=== PATIENT | female | born 1945 | race Caucasian/White ===

== ENCOUNTER 2024-07-19 08:32 | Outpatient (REF) | payer MEDICARE, SELFPAY ==
--- NOTE | ~2024-07-19 | XR_ITS ---
EXAMINATION: XR KNEE, RIGHT XR KNEE, LEFT CLINICAL INFORMATION: Right and left knee pain. COMPARISON: None available. TECHNIQUE: AP, lateral, and sunrise views of the right and left knee. FINDINGS: Right Knee: Mild medial compartment joint space narrowing. Tiny medial and patellofemoral compartment and marginal osteophytes. No osseous erosion. No fracture or dislocation. Superior patellar enthesophytes. No joint effusion. Left Knee: Moderate medial compartment joint space narrowing. Medial and patellofemoral compartment and marginal osteophytes. No osseous erosion. No fracture or dislocation. Superior patellar enthesophytes. No joint effusion. XR/XR knee RT 3V IMPRESSION: RIGHT KNEE: Mild medial and patellofemoral compartment osteoarthritis. LEFT KNEE: Moderate medial as well as mild patellofemoral compartment osteoarthritis. Electronically signed by: Nazario Hayes MD 08/08/2024 08:56 PM EDT
--- NOTE | ~2024-07-19 | XR_ITS ---
EXAMINATION: XR KNEE, RIGHT XR KNEE, LEFT CLINICAL INFORMATION: Right and left knee pain. COMPARISON: None available. TECHNIQUE: AP, lateral, and sunrise views of the right and left knee. FINDINGS: Right Knee: Mild medial compartment joint space narrowing. Tiny medial and patellofemoral compartment and marginal osteophytes. No osseous erosion. No fracture or dislocation. Superior patellar enthesophytes. No joint effusion. Left Knee: Moderate medial compartment joint space narrowing. Medial and patellofemoral compartment and marginal osteophytes. No osseous erosion. No fracture or dislocation. Superior patellar enthesophytes. No joint effusion. XR/XR knee LT 3V IMPRESSION: RIGHT KNEE: Mild medial and patellofemoral compartment osteoarthritis. LEFT KNEE: Moderate medial as well as mild patellofemoral compartment osteoarthritis. Electronically signed by: Nazario Hayes MD 08/08/2024 08:56 PM EDT
== END 2024-07-19 08:33 | disposition home or self-care (01) ==
LOC: HO.HOSX 08:32
PROVIDERS: PCP Internal Medicine; Visit Provider Orthopaedic Surgery
DX: M25.562 Pain in left knee (principal); M25.561 Pain in right knee; M17.11 Unilateral primary osteoarthritis, right knee; M17.12 Unilateral primary osteoarthritis, left knee
CPT/HCPCS: 20610; 73562; 99202; J1010

== ENCOUNTER 2024-07-19 09:15 | Outpatient (AMB) | payer MEDICARE, SELFPAY ==
--- NOTE | 2024-07-19 09:20 | MHC.OFFVIS ---
Vital Signs 07/19/24 09:22 Height 5 ft 1 in Weight 160 lb BMI 30.2 Intake Visit Reasons: Bilateral knee pain Intake Note: Genny is a 79 year old female who presents with complaints of bilateral knee pains. She describes her pains as sharp in nature. She has had cortisone injections in the past which gave her fairly good relief. She has tried Tylenol and anti-inflammatory medicines which gave her minimal relief. She would like to hold off on surgery for as long as possible. She has physical therapy exercises which aggravated her pain. Allergies cefuroxime [From CEFTIN] Allergy (Severe, Unverified 07/19/24 09:23) THROAT SWELLS codeine [CODEINE] Allergy (Severe, Unverified 07/19/24 09:23) ANGIOEDEMA, swelling Medication List - Last Reconciled 07/19/24 by Elías Floyd MD albuterol sulfate 90 mcg/actuation 2 puffs inhalation QID PRN aspirin (Adult Low Dose Aspirin) 162 mg PO DAILY cetirizine 10 mg PO DAILY levothyroxine 75 mcg PO DAILY oxybutynin chloride 5 mg PO TID [facility] Social History (Updated 07/19/24 @ 09:29 by SHADI Young) Alcohol intake: never Patient Tobacco Use Status: Never used Tobacco Current occupational status: retired Physical Exam Vital Signs: BMI result Body Mass Index 30.2 Const Other: Well-nourished well-developed very friendly female awake alert and oriented x3 in no acute distress Extrem Other: Bilateral lower extremity examination shows good capillary refill, no skin lesions noted, normal sensation light touch Bilateral knee examination shows minimal effusions, palpable crepitus with range of motion, pain with range of motion, range of motion from -3 degrees to 115 degrees, no instability Office Procedures Joint Injection/Aspiration Joint Injection/Aspiration Primary Site: left knee Prep: site was prepped using aseptic technique Injected: 40 mg of, DepoMedrol and 1% plain lidocaine Procedure: The patient tolerated the procedure well Coding 92535 - Large joint Procedure code (CPT) selection complete Joint Injection/Aspiration Joint Injection/Aspiration Primary Site: right knee Prep: site was prepped using aseptic technique Injected: 40 mg of, DepoMedrol and 1% plain lidocaine Procedure: The patient tolerated the procedure well Coding 53937 - Large joint Procedure code (CPT) selection complete Results Reviewed Results Reviewed: X-rays of the patient's bilateral knee show moderate joint space narrowing most significant in the medial compartments, subchondral sclerosis, no acute bony abnormalities Assessment & Plan Assessment & Plan (1) Arthritis of left knee: Code(s): M17.12 - Unilateral primary osteoarthritis, left knee Category: Medical (2) Arthritis of right knee: Code(s): M17.11 - Unilateral primary osteoarthritis, right knee Category: Medical (3) Pain in both knees: Code(s): M25.561 - Pain in right knee; M25.562 - Pain in left knee Plan Mrs. Bobo presents with bilateral knee pains due to degenerative joint disease. I had a lengthy discussion with the patient regarding the treatment options. The risks and benefits of bilateral knee cortisone injections were discussed at length with the patient. The patient wished to proceed. She tolerated the injections well. She will continue with a home exercise program. She will follow up with me on an as-needed basis should her symptoms not plateau at an unacceptable level over the next few months. Feel free to call me at any time should questions regarding her orthopedic management arise. I spent 22 minutes in reviewing the patient's records and imaging studies, seeing the patient and documenting in the medical record. Orders: Orders XR knee LT 3V Today M25.562 - Pain in left knee XR knee RT 3V Today M25.561 - Pain in right knee AMB Joint Injection/Aspiration Today M17.12 - Unilateral primary osteoarthritis, left knee AMB Joint Injection/Aspiration Today M17.11 - Unilateral primary osteoarthritis, right knee Coding Level of Care Code New Pt Level 3 (07986) Diagnoses Arthritis of left knee M17.12 Arthritis of right knee M17.11 Pain in both knees M25.561; M25.562 CPT Codes Coding - 37676 Large joint: 11313 - Large joint ([id number]) Coding - 89624 Large joint: 91208 - Large joint ([id number])
[2024-07-19 09:22] VITALS: BMI 30.2
== END 2024-07-19 09:49 | disposition home or self-care (01) ==
PROVIDERS: PCP Nurse Practitioner Family; Visit Provider Orthopaedic Surgery
DX: M17.0 Bilateral primary osteoarthritis of knee (principal)
CPT/HCPCS: 20610; 99203

== ENCOUNTER 2024-08-26 10:09 | Day surgery (SDC) | payer MEDICARE, SELFPAY ==
--- NOTE | 2024-08-25 10:01 | HO.ANESPROP2 ---
Documented by User: Jackelyn Morrow NP 08/25/24 11:49 HPI - Anesthesia Eval Consult details Narrative: 79yo F for Upper Endoscopy and Colonoscopy Follows [facility] cardiology. Last office visit 08/23/24: ?Patient was referred to cardiology for dyspnea.? Although her EKG?showed?Q waves?her echocardiogram?showed preserved EF with no wall motion abnormalities.? She was found to have?asymmetric basal septal hypertrophy?with no?evidence of?LVOT.? She has not had any clinical heart failure. ?BNP was low.? She was able to exercise at a high functional capacity without any?EKG changes.? D-dimer was negative.? She is not having any active chest pain.? I cannot appreciate a significant murmur on exam?which is consistent with echo?findings.? PMF Active Problems Active Problems: All Active Problems Arthritis of right knee (Acute) Arthritis of left knee (Acute) Right knee pain (Acute) Left knee pain (Acute) Past Medical History Medical History (Updated 08/25/24 @ 08:49 by Jud Alva RN) Thyroid disease Lumbosacral plexopathy Vitamin D deficiency Osteopenia Osteoarthritis TIA (transient ischemic attack) GERD (gastroesophageal reflux disease) Surgical History Surgical History (Updated 08/25/24 @ 08:48 by Jud Alva RN) Hx of breast biopsy Hx of cholecystectomy History of cervical spinal surgery H/O colonoscopy History of esophagogastroduodenoscopy (EGD) Social History Social History (Updated 07/19/24 @ 09:29 by SHADI Young) Are you a primary health care marketing manager to a significant other at home: No Do you presently have visiting nurse or other home services: No Alcohol intake: never Patient Tobacco Use Status: Never used Tobacco Use of substances other than those prescribed or required for medical reasons: No Are you DNR?: No Advance Directives: No Advance Directives Information Provided: Yes Current occupational status: retired Meds Allergies Allergy/AdvReac Type Severity Reaction Status Date / Time cefuroxime [From CEFTIN] Allergy Severe THROAT Verified 08/26/24 10:42 SWELLS codeine [CODEINE] Allergy Severe ANGIOEDEMA, Verified 08/26/24 10:42 swelling Home Medications ?Medication ?Instructions ?Recorded ?Confirmed ?Last Taken ?Type albuterol sulfate 90 mcg/actuation 2 puff inhalation QID PRN wheezing 07/19/24 08/26/24 Unknown History aerosol inhaler aspirin 81 mg tablet,delayed 162 mg PO DAILY 07/19/24 08/26/24 Unknown History release (Adult Low Dose Aspirin) cetirizine 10 mg tablet 10 mg PO DAILY 07/19/24 08/26/24 Unknown History levothyroxine 75 mcg tablet 75 mcg PO DAILY 07/19/24 08/26/24 Unknown History oxybutynin chloride 5 mg tablet 5 mg PO TID 07/19/24 08/26/24 Unknown History ascorbic acid (vitamin C) 500 mg 500 mg PO DAILY 08/25/24 08/26/24 Unknown History tablet (Vitamin C) lysine 1,000 mg tablet 1,000 mg PO DAILY 08/25/24 08/26/24 Unknown History multivit,calcium,minerals-folic tab PO 08/25/24 Unknown History acid-herbal no.176 200 mcg tablet [id number] 8 mg-folic 400 1 tab PO DAILY 08/25/24 08/26/24 Unknown History mcg-K 50 mcg-lutein 300 mcg tablet (Multivitamin Women 50 Plus) turmeric 08/25/24 Unknown History pantoprazole 40 mg tablet,delayed 40 mg PO DAILY 08/26/24 08/26/24 Unknown History release Exam Pertinent Lab Results Pertinent Lab Results: [facility] WBC: 6.2 x10E3/uL (08/22/24) RBC: 4.27 (08/22/24) Hgb: 13 Gm/dL (08/22/24) Hct: 40.4 % (08/22/24) MCV: 95 fL (08/22/24) MCH: 30.4 pg (08/22/24) MCHC: 32.2 Gm/dL (08/22/24) Platelet Count: 302 x10E3/uL (08/22/24) Sodium: 137 mmol/L (08/22/24) Potassium: 4.7 mmol/L (08/22/24) Chloride: 100 mmol/L (08/22/24) Bicarbonate Level: 24 mmol/L (08/22/24) Glucose Level: 91 mg/dL (08/22/24) Hemoglobin A1C (Monitoring):?5.7 %?High (08/22/24) BUN: 17 mg/dL (10/05/23) BUN: 16 mg/dL (08/22/24) Creatinine-Blood:?1.03 mg/dL?High (08/22/24) Calcium: 9.3 mg/dL (08/22/24) Protein, Total: 6.9 Gm/dL (08/22/24) Albumin: 4.2 Gm/dL (08/22/24) Alkaline Phosphatase: 44 IU/L (08/22/24) AST (SGOT): 21 IU/L (08/22/24) ALT (SGPT): 14 IU/L (08/22/24) Bilirubin, Total: 0.4 mg/dL (08/22/24) Nt-Probnp: 206 pg/mL (05/09/24) Cholesterol:?245 mg/dL?High (08/22/24) Triglycerides:?152 mg/dL?High (08/22/24) HDL Cholesterol: 60 mg/dL (08/22/24) LDL Cholesterol: 113 mg/dL (10/05/23) Non HDL Cholesterol:?185 mg/dL?High (08/22/24) LDL Chol Calc (NIH):?158 mg/dL?High (08/22/24) TSH: 0.597 uIU/mL (08/22/24) Free T4: 1.66 ng/dL (08/22/24) Narrative Narrative: 14:50:12 Ventricular Rate: 71 BPM Atrial Rate: 71 BPM P-R Interval: 124 ms QRS Duration: 116 ms Q-T Interval: 440 ms QTC Calculation(Bazett): 478 ms P [place]: 44 degrees R [place]: -3 degrees T [place]: 5 degrees Normal sinus rhythm infero-posterior infarct (cited on or before 08-OCT-2023) Right bundle branch block When compared with ECG of 11-FEB-2024 14:49, No significant change was found Confirmed by SARI WEI MD ([id number]) on 02/12/2024 8:09:09 PM [place]: SARI WEI MD ? Signed By: Curt Wei MD Echocardiogram - Complete ? 09:03:16 Summary Normal left ventricular size and function with ejection fraction of 60-65%. No focal wall motion abnormalities. Severe asymmetric basal septal hypertrophy with septal thickness 2.3 cm. The remainder of the left ventricle has normal wall thickness. There is no evidence of a left ventricular outflow tract obstruction. Normal right ventricular size and function. No significant valvular disease. Comparison Comparison is made to the study of 12/04/2022, . There is no significant change. Assessment and Plan Assessment Anesthesia Assessment: Chart Reviewed Documented by User: Pasquale Rivera MD 08/26/24 10:50 PMF Past Medical History Medical History (Updated 08/25/24 @ 08:49 by Jud Alva RN) Thyroid disease Lumbosacral plexopathy Vitamin D deficiency Osteopenia Osteoarthritis TIA (transient ischemic attack) GERD (gastroesophageal reflux disease) Family History Family history of problems with anesthesia: No Surgical History Surgical History (Updated 08/25/24 @ 08:48 by Jud Alva RN) Hx of breast biopsy Hx of cholecystectomy History of cervical spinal surgery H/O colonoscopy History of esophagogastroduodenoscopy (EGD) History of Problems with Anesthesia: No Social History Social History (Updated 07/19/24 @ 09:29 by SHADI Young) Are you a primary health care marketing manager to a significant other at home: No Do you presently have visiting nurse or other home services: No Alcohol intake: never Patient Tobacco Use Status: Never used Tobacco Use of substances other than those prescribed or required for medical reasons: No Are you DNR?: No Advance Directives: No Advance Directives Information Provided: Yes Current occupational status: retired Meds Allergies Allergy/AdvReac Type Severity Reaction Status Date / Time cefuroxime [From CEFTIN] Allergy Severe THROAT Verified 08/26/24 10:42 SWELLS codeine [CODEINE] Allergy Severe ANGIOEDEMA, Verified 08/26/24 10:42 swelling Home Medications ?Medication ?Instructions ?Recorded ?Confirmed ?Last Taken ?Type albuterol sulfate 90 mcg/actuation 2 puff inhalation QID PRN wheezing 07/19/24 08/26/24 Unknown History aerosol inhaler aspirin 81 mg tablet,delayed 162 mg PO DAILY 07/19/24 08/26/24 Unknown History release (Adult Low Dose Aspirin) cetirizine 10 mg tablet 10 mg PO DAILY 07/19/24 08/26/24 Unknown History levothyroxine 75 mcg tablet 75 mcg PO DAILY 07/19/24 08/26/24 Unknown History oxybutynin chloride 5 mg tablet 5 mg PO TID 07/19/24 08/26/24 Unknown History ascorbic acid (vitamin C) 500 mg 500 mg PO DAILY 08/25/24 08/26/24 Unknown History tablet (Vitamin C) lysine 1,000 mg tablet 1,000 mg PO DAILY 08/25/24 08/26/24 Unknown History multivit,calcium,minerals-folic tab PO 08/25/24 Unknown History acid-herbal no.176 200 mcg tablet wivrlzsf-fvlb-fwdg 8 mg-folic 400 1 tab PO DAILY 08/25/24 08/26/24 Unknown History mcg-K 50 mcg-lutein 300 mcg tablet (Multivitamin Women 50 Plus) turmeric 08/25/24 Unknown History pantoprazole 40 mg tablet,delayed 40 mg PO DAILY 08/26/24 08/26/24 Unknown History release Exam Pertinent Lab Results Pertinent Lab Results: [facility] WBC: 6.2 x10E3/uL (08/22/24) RBC: 4.27 (08/22/24) Hgb: 13 Gm/dL (08/22/24) Hct: 40.4 % (08/22/24) MCV: 95 fL (08/22/24) MCH: 30.4 pg (08/22/24) MCHC: 32.2 Gm/dL (08/22/24) Platelet Count: 302 x10E3/uL (08/22/24) Sodium: 137 mmol/L (08/22/24) Potassium: 4.7 mmol/L (08/22/24) Chloride: 100 mmol/L (08/22/24) Bicarbonate Level: 24 mmol/L (08/22/24) Glucose Level: 91 mg/dL (08/22/24) Hemoglobin A1C (Monitoring):?5.7 %?High (08/22/24) BUN: 17 mg/dL (10/05/23) BUN: 16 mg/dL (08/22/24) Creatinine-Blood:?1.03 mg/dL?High (08/22/24) Calcium: 9.3 mg/dL (08/22/24) Protein, Total: 6.9 Gm/dL (08/22/24) Albumin: 4.2 Gm/dL (08/22/24) Alkaline Phosphatase: 44 IU/L (08/22/24) AST (SGOT): 21 IU/L (08/22/24) ALT (SGPT): 14 IU/L (08/22/24) Bilirubin, Total: 0.4 mg/dL (08/22/24) Nt-Probnp: 206 pg/mL (05/09/24) Cholesterol:?245 mg/dL?High (08/22/24) Triglycerides:?152 mg/dL?High (08/22/24) HDL Cholesterol: 60 mg/dL (08/22/24) LDL Cholesterol: 113 mg/dL (10/05/23) Non HDL Cholesterol:?185 mg/dL?High (08/22/24) LDL Chol Calc ([facility]):?158 mg/dL?High (08/22/24) TSH: 0.597 uIU/mL (08/22/24) Free T4: 1.66 ng/dL (08/22/24) Airway Mallampati Class: II TM Dist: >3cm Neck ROM: Full Assessment and Plan Assessment Anesthesia Assessment: Anesthesia Plan Discussed Final Anesthetic Review Family History of Problems with Anesthesia: No History of Problems with Anesthesia: No NPO: Yes ASA Class: III Final Preanesthetic Review: No Changes in Pt Med Stat, Meds/Allgs Chart Reviewed, Consent Obtained/Reviewed and Anes Risks/Benef Reviewed Patient Risk: Intermediate Procedure Risk: Low Anesthetic Plan Anesthetic Plan: TIVA Disposition: Standard PACU
[2024-08-26 10:23] VITALS: BMI 31.7
[2024-08-26 10:26] VITALS: BP 126/58; PULSE 74; RESP 16; TEMP 36.4; O2SAT 99
[2024-08-26] MEDS: Lactated Ringers 1,000 ML 100 ML IVCONT (10:48)
--- NOTE | 2024-08-26 10:49 | MHC.SHP ---
Pre-Procedural Eval Section A - 24 Hr Update-Section A only Date of Service: 08/26/24 Section B - Complete if H&P > 30 days Chief Complaint: Gastro-esophageal reflux disease with esophagitis, Details of Present Illness: see H&P no changes Relevant Family History (Specify if Yes): No Relevant Social History: None Present Medications: see Short Stay Collaborative assessment Medical History: No relevant PMH History of Previous Operations: No relevant previous surgery Allergies: Allergies Allergy/AdvReac Type Severity Reaction Status Date / Time cefuroxime [From CEFTIN] Allergy Severe THROAT Verified 08/26/24 10:42 SWELLS codeine [CODEINE] Allergy Severe ANGIOEDEMA, Verified 08/26/24 10:42 swelling Review of Systems Sugical H&P ROS: Negative: Constitution, Cardiovascular, Respiratory, Neurological, Psychiatric, Hem-Onc, Allergic/Immunologic, Gastrointestinal, Genitourinary, Musculoskeletal, Integumentary, Endocrine and Eyes/Ears/Nose/Throat Exam Surgical H&P Exam: Normal: HEENT, Normal: Heart, Normal: Lungs, Normal: Extremities, Normal: Abdomen, Normal: Skin and Normal: Neurological Plan Diagnosis/Plan: Unchanged I have reviewed the history and physical and performed a pertinent physical examination on my patient. No changes have occurred unless specified. Time Spent With Patient Time: Total time managing care of this patient today ____ minutes.
[2024-08-26 11:36] VITALS: BP 119/61; PULSE 72; RESP 15; TEMP 36.4; O2SAT 99
[2024-08-26 11:51] VITALS: BP 121/79; PULSE 68; RESP 15; O2SAT 97
--- NOTE | 2024-08-26 11:59 | OP_ITS ---
DATE OF SERVICE: 08/26/2024 SURGEON: Mars Stokes MD INDICATIONS: 1. Gastroesophageal reflux disease with esophagitis. 2. Diarrhea. 3. Colon cancer screening. PREOPERATIVE DIAGNOSIS: POSTOPERATIVE DIAGNOSIS: PROCEDURE PERFORMED: ESTIMATED BLOOD LOSS: COMPLICATIONS: ANESTHESIA: Monitored anesthesia care. ASSISTANTS: SPECIMENS: PROCEDURES PERFORMED: 1. Upper endoscopy with biopsy. 2. Colonoscopy to the terminal ileum with biopsy. DESCRIPTION OF PROCEDURE: A history and physical were performed. The risks and benefits of the procedure were explained to the patient. Informed consent was obtained. The patient was placed in the left lateral decubitus position. The Olympus video gastroscope was introduced into the esophagus, stomach, and duodenum. Examination was performed and the scope was removed. She was repositioned for colonoscopy. A digital rectal exam was performed and was found to be normal. The Olympus pediatric video colonoscope was introduced into the rectum and advanced to the cecum. The cecum was identified by transillumination, palpation, and identification of ileocecal valve. Examination was performed and the scope was removed. She tolerated both procedures well and was returned to recovery area in stable condition. FINDINGS: Upper endoscopy: 1. Esophagus. The esophagus was normal. There was no esophagitis. The EG junction was slightly irregular and this was biopsied. There was a small sliding hiatal hernia. 2. Stomach. Showed no evidence of masses, ulcers, or polyps. Antral biopsies were obtained to evaluate for H pylori. 3. Duodenum, the bulb and second portion were normal. Second portion biopsies were obtained. Colonoscopy: The terminal ileum was examined and appeared normal. 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 No therapy was performed. A small, less than 5 mm polyp was present in the cecum and we removed this with biopsy forceps. No other polyps were identified. There was mild sigmoid diverticulosis. The quality of the prep was good. Retroflexed examination showed small internal hemorrhoids. Random sigmoid biopsies were obtained because of the patient's history of diarrhea. IMPRESSION: 1. Hiatal hernia. 2. Gastroesophageal reflux disease. 3. Colon polyp. RECOMMENDATION: Follow up the biopsy results. MD KANDI Mayer/SWATHI / [id number]
[2024-08-26 12:05] VITALS: BP 144/66; PULSE 66; RESP 15; TEMP 36.4; O2SAT 97
--- NOTE | 2024-08-26 12:35 | PC.NURSE ---
dr. michele visited with patient in discharge and updated her regarding procedure, findings and f/u.
== END 2024-08-26 12:37 | disposition home or self-care (01) ==
PROVIDERS: PCP Internal Medicine; Visit Provider Internal Medicine Gastroenterology
PROC: (CPT 43239; principal; 2024-08-26 11:00)
DX: K22.89 Other specified disease of esophagus (principal); K29.70 Gastritis, unspecified, without bleeding; K44.9 Diaphragmatic hernia without obstruction or gangrene; K21.00 Gastro-esophageal reflux disease with esophagitis, without bleeding; Z12.11 Encounter for screening for malignant neoplasm of colon; D12.0 Benign neoplasm of cecum; K55.20 Angiodysplasia of colon without hemorrhage; K57.30 Diverticulosis of large intestine without perforation or abscess without bleeding; K64.8 Other hemorrhoids; Z86.0101 Personal history of adenomatous and serrated colon polyps; Z79.82 Long term (current) use of aspirin; Z79.899 Other long term (current) drug therapy
CPT/HCPCS: 43239; 45380; 88305; 88313; 88342; J2003; J2704

== ENCOUNTER 2025-05-16 13:21 | Outpatient (AMB) | payer MEDICARE, SELFPAY ==
[2025-05-16 13:23] VITALS: BMI 31.7
--- NOTE | 2025-05-16 13:23 | MHC.OFFVIS ---
Vital Signs 05/16/25 13:23 Height 5 ft 1 in Weight 168 lb BMI 31.7 Intake Visit Reasons: Inj-B/L knee injection-last 07/19/24 Intake Note: Genny is an 80 year old female who presents with complaints of bilateral knee pains. She describes her pains as sharp in nature. She has tried Tylenol and anti-inflammatory medicines which gave her minimal relief. She has also done physical therapy exercises which aggravated her pain. She wishes to hold off on total knee replacement surgery if at all possible. Allergies cefuroxime (From CEFTIN) Allergy (Severe, Verified 05/16/25 13:23) THROAT SWELLS codeine (CODEINE) Allergy (Severe, Verified 05/16/25 13:23) ANGIOEDEMA, swelling Medication List - Last Reconciled 05/16/25 by Elías Floyd MD albuterol sulfate 90 mcg/actuation 2 puffs inhalation QID PRN ascorbic acid (vitamin C) (Vitamin C) 500 mg PO DAILY aspirin (Adult Low Dose Aspirin) 162 mg PO DAILY cetirizine 10 mg PO DAILY levothyroxine 75 mcg PO DAILY lysine 1,000 mg PO DAILY [id number]-[id number]-zyrf-FA-vit K-lut 8 mg iron-400 mcg-50 mcg (Multivitamin Women 50 Plus) 1 tab PO DAILY mvit,calc,min-folic [id number] 200 mcg tabs PO oxybutynin chloride 5 mg PO TID pantoprazole 40 mg PO DAILY [turmeric ] PFSH Medical History (Updated 08/25/24 @ 08:49 by Jud Alva RN) Thyroid disease Lumbosacral plexopathy Vitamin D deficiency Osteopenia Osteoarthritis TIA (transient ischemic attack) GERD (gastroesophageal reflux disease) Surgical History (Updated 08/25/24 @ 08:48 by Jud Alva RN) Hx of breast biopsy Hx of cholecystectomy History of cervical spinal surgery H/O colonoscopy History of esophagogastroduodenoscopy (EGD) Social History (Updated 07/19/24 @ 09:29 by SHADI Young) Are you a primary inpatient care manager rn to a significant other at home: No Do you presently have visiting nurse or other home services: No Alcohol intake: never Patient Tobacco Use Status: Never used Tobacco Current occupational status: retired Physical Exam Vital Signs: BMI result Body Mass Index 31.7 Const Other: Well-nourished well-developed very friendly female awake alert and oriented x3 in no acute distress Extrem Other: Bilateral lower extremity examination shows good capillary refill, no skin lesions noted, normal sensation light touch Bilateral knee examination shows minimal effusions, palpable crepitus with range of motion, pain with range of motion, no instability Office Procedures AMB Joint Injection/Aspiration Joint Injection/Aspiration Primary Site: right knee Prep: site was prepped using aseptic technique Injected: 40 mg of, DepoMedrol and 1% plain lidocaine Procedure: The patient tolerated the procedure well Coding - Large joint Procedure code (CPT) selection complete AMB Joint Injection/Aspiration Joint Injection/Aspiration Primary Site: left knee Prep: site was prepped using aseptic technique Injected: 40 mg of, DepoMedrol and 1% plain lidocaine Procedure: The patient tolerated the procedure well Coding - Large joint Procedure code (CPT) selection complete Assessment & Plan Assessment & Plan (1) Arthritis of left knee: Code(s): M17.12 - Unilateral primary osteoarthritis, left knee Category: Medical (2) Arthritis of right knee: Code(s): M17.11 - Unilateral primary osteoarthritis, right knee Category: Medical Plan Ms. Bobo presents with bilateral knee pains due to degenerative joint disease. The risks and benefits of bilateral knee cortisone injections were discussed at length with the patient. The patient wished to proceed. She tolerated the injections well. She will continue with her home exercise program. She will follow up with me on an as-needed basis should her symptoms not plateau at an unacceptable level over the next few months. Feel free to call me at any time should questions regarding her orthopedic management arise. I spent 20 minutes in reviewing the patient's records and imaging studies, seeing the patient and documenting in the medical record. Orders: Orders AMB Joint Injection/Aspiration Today M17.12 - Unilateral primary osteoarthritis, left knee AMB Joint Injection/Aspiration Today M17.11 - Unilateral primary osteoarthritis, right knee Coding Level of Care Code Est Pt Level 3 (28222) Complex EM visit Add On G2211 Diagnoses Arthritis of left knee M17.12 Arthritis of right knee M17.11 CPT Codes Coding - 48934 Large joint: 01265 - Large joint ([id number]) Coding - 28420 Large joint: 09628 - Large joint ([id number])
== END 2025-05-16 13:52 | disposition home or self-care (01) ==
PROVIDERS: PCP Internal Medicine; Visit Provider Orthopaedic Surgery
DX: M17.0 Bilateral primary osteoarthritis of knee (principal)
CPT/HCPCS: 20610; 99213

== ENCOUNTER → 2025-05-16 13:21 | Outpatient (BNVA) | payer MEDICARE, SELFPAY | PROVIDERS: PCP Internal Medicine; Visit Provider Orthopaedic Surgery | DX: M17.0 Bilateral primary osteoarthritis of knee (principal) | CPT/HCPCS: 20610; 99212; J1010; J2003 ==